=== PATIENT | male | born 1985 | race Caucasian/White ===

== ENCOUNTER 2021-03-20 12:17 | Emergency (ER) | payer BC ==
[~2021-03-20] VITALS: Ht 177.8 cm; Wt 85.3 kg
--- OUTSIDE RECORDS SUMMARY | 2021-03-20 12:24 | CCD | Continuity of Care Document ---
Author Author Otilio PATE Organization Unknown Address [address] [place] [id number] Phone [phone] Problems Description No Information Available Social History Type Date Description Comments Sex Unknown Allergies, Adverse Reactions, Alerts Description No Information Available Medications Description No Information Available Immunizations Description No Information Available Vital Signs Description No Information Available Results Description No Information Available Procedures Description No Information Available Medical Devices Description No Information Available Encounters Description No Information Available Assessments Date Code Description Provider 01/23/2021 Z20.828 Contact with and (hwang spected) exposure to other viral communicable diseases JUDE Morelos Plan of Treatment No Information Available Functional Status Description No Information Available Mental Status Description No Information Available Referrals Description No Information Available
--- OUTSIDE RECORDS SUMMARY | 2021-03-20 12:24 | CCD | Continuity of Care Document ---
Author Author Otilio PATE Organization Unknown Address [address] [place] [id number] Phone [phone] Problems Description No Information Available Social History Type Date Description Comments Sex Unknown Allergies and adverse reactions Description No Information Available Medications Description No Information Available Immunizations Description No Information Available Vital Signs Description No Information Available Results Description No Information Available Procedures Description No Information Available Medical Devices Description No Information Available Encounters Description No Information Available Assessments Date Code Description Provider 03/14/2021 Z20.828 Contact with and (hwang spected) exposure to other viral communicable diseases JUDE Morelos 01/23/2021 Z20.828 Contact with and (hwang spected) exposure to other viral communicable diseases JUDE Morelos Plan of Treatment No Information Available Functional Status Description No Information Available Mental Status Description No Information Available Referrals Description No Information Available
--- OUTSIDE RECORDS SUMMARY | 2021-03-20 12:24 | CCD | Continuity of Care Document ---
Author Author Otilio PATE Organization Unknown Address [address] [place] [id number] Phone [phone] Problems Description No Information Available Social History [...]
--- OUTSIDE RECORDS SUMMARY | 2021-03-20 12:24 | CCD | Continuity of Care Document ---
Author Author Otilio PATE [place] Organization Unknown Address [address] [place] [phone] Phone [phone] Problems Description No Information Available Social History Type Date Description Comments Sex Unknown Allergies, Adverse Reactions, Alerts Description No Information Available Medications Description No Information Available Immunizations Description No Information Available Vital Signs Description No Information Available Results Description No Information Available Procedures Description No Information Available Medical Devices Description No Information Available Encounters Description No Information Available Assessments Description No Information Available Plan of Treatment No Information Available Functional Status Description No Information Available Mental Status Description No Information Available Referrals Description No Information Available
--- OUTSIDE RECORDS SUMMARY | 2021-03-20 12:24 | CCD ---
Author Author [facility] Address Unknown Phone Unavailable Support Name Relationship Address Phone [facility] Next Of Kin [address] [place] [address] ENEMIKHAIL Ortega Next Of Kin [address] [place] [address] ENEDEXTER OrtegaRA [place] [address] [place] [facility] [place] [id number] Re-disclosure Warning The records that you are about to access may contain information from federally-assisted alcohol or drug abuse programs. If such information is present, then the following federally mandated warning applies: This information has been disclosed to you from records protected by federal confidentiality rules (42 CFR part 2). The federal rules prohibit you from making any further disclosure of this information unless further disclosure is expressly permitted by the written consent of the person to whom it pertains or as otherwise permitted by 42 CFR part 2. A general authorization for the release of medical or other information is NOT sufficient for this purpose. The Federal rules restrict any use of the information to criminally investigate or prosecute any alcohol or drug abuse patient.The records that you are about to access may contain highly sensitive health information, the redisclosure of which is protected by Article 27-F of the [facility] Public Health law. If you continue you may have access to information: Regarding HIV / AIDS; Provided by facilities licensed or operated by the [facility] Office of Mental Health; or Provided by the [facility] Office for People With Developmental Disabilities. If such information is present, then the following [facility] mandated warning applies: This information has been disclosed to you from confidential records which are protected by state law. State law prohibits you from making any further disclosure of this information without the specific written consent of the person to whom it pertains, or as otherwise permitted by law. Any unauthorized further disclosure in violation of state law may result in a fine or fdc sentence or both. A general authorization for the release of medical or other information is NOT sufficient authorization for further disc losure. Immunizations Vaccine Date Status Description Data Source(s) COVID-19 VACCINE Pfizer 06/11/2020 12:00:00 AM EST completed [facility] Vaccine Series Complete: YESThis Data wa s Submitted to [facility] Via [employer]. COVID-19 VACCINE Pfizer 05/26/2020 12:00:00 AM EST completed [facility] Vaccine Series Complete: YESThis Data wa s Submitted to [facility] Via [employer]. Medications No Information Insurance Providers Payer name Policy type / Coverage type Policy ID Covered green party ID Covered green party's relationship to cruz Policy Cruz Plan Information [facility] FEDERAL EMPL[employer]EE PROGRAM [id number] [facility] [id number] ANSI-Commercial [id number] Problems, Conditions, and Diagnoses No Information Surgeries/Procedures No Information Results ID Date Data Source [id number] 01/23/2021 12:00:00 AM EDT [facility] Name Value Range Interpretation Code Description Data Hailey rce(s) Supporting Document(s) SARS-CoV2 Rapid Antigen Negative [facility] This lab was reported by Marisol Banuelos. ID Date Data Source [id number] 04/15/2020 12:00:00 AM EST [facility] Name Value Range Interpretation Code Description Data Hailey rce(s) Supporting Document(s) SARS coronavirus 2 RNA [Presence] in Res piratory specimen by ELIANE with probe detection [facility] This lab was ordered by Iqra Damon and reported by [facility]. Procedure Social History No Information
[2021-03-20 12:30] VITALS: BP 144/89
--- OUTSIDE RECORDS SUMMARY | 2021-03-20 13:05 | CCD ---
Author Author [facility] Organization [facility] Address Unknown Phone Unavailable Support Name Relationship Address Phone SELF Next Of Kin Unknown Unavailable [employer] Next Of Kin [address], [place] [address] MIKHAIL LUQUE Next Of Kin [phone] [address] ENEMIKHAIL Ortega [facility] [address] [place] [address] Re-disclosure Warning The records that you are [...] is protected by Article 27-F of the [facility] Public Health law. If you continue you may have access to information: Regarding HIV / AIDS; Provided by facilities licensed or operated by the [facility] Office of Mental Health; or Provided by the [facility] Office for People With Developmental Disabilities. If such information is present, then the following [facility] mandated warning applies: This information has been [...] law may result in a fine or care home sentence or both. A general authorization for the release of medical or other information is NOT sufficient authorization for further disc losure. Immunizations Vaccine Date Status Description Data Source(s) COVID-19 VACCINE Pfizer 06/11/2020 12:00:00 AM EST completed [facility] Vaccine Series Complete: YESThis Data wa s Submitted to [facility] Via [employer]. COVID-19 VACCINE Pfizer 05/26/2020 12:00:00 AM EST completed [facility] Vaccine Series Complete: YESThis Data wa s Submitted to [facility] Via [employer]. Medications No Information Insurance Providers Payer name Policy type / Coverage type Policy ID Covered libertarian ID Covered libertarian's relationship to salazar Policy Salazar Plan Information [facility] FEDERAL EMPLOYEE PROGRAM [id number] [facility] [id number] ANSI-Commercial [id number] Problems, Conditions, and Diagnoses No Information Surgeries/Procedures No Information Results ID Date Data Source [id number] 01/23/2021 12:00:00 AM EDT [facility] Name Value Range Interpretation Code Description Data Hailey rce(s) Supporting Document(s) SARS-CoV2 Rapid Antigen Negative [facility] This lab was reported by Marisol Schilling Vin. ID Date Data Source [id number] 04/15/2020 12:00:00 AM EST [facility] Name Value Range Interpretation Code Description Data Hailey rce(s) Supporting Document(s) SARS coronavirus 2 RNA [Presence] in Res piratory specimen by ELIANE with probe detection [facility] This lab was ordered by Iqra Damon and reported by [facility]. Procedure Social History No Information
== END 2021-03-20 12:50 | disposition left against medical advice (07) ==
LOC: M ED 12:17
DX: Z53.21 Procedure and treatment not carried out due to patient leaving prior to being seen by health care provider (principal)